=== PATIENT | male | born 1970 | race Two or more races ===

== ENCOUNTER 2025-02-20 18:49 | Inpatient (IN) | payer BC, OTHER ==
[~2025-02-20] VITALS: Ht 170.2 cm; Wt 102.0 kg
--- NOTE | 2025-02-20 19:14 | ED.PDOC ---
HPI Comments This patient is a pleasant but morbidly obese 54-year-old male who was sent to our facility from [facility] urgent care due to a possible NSTEMI event. Patient is going to the urgent care due to chest pain concerns. At arrival, patient was given nitro and EKG and laboratories were drawn. EKG was questionable for an NSTEMI and patient had significant elevated troponins. At time of arrival here, patient was relatively stable with only minimal chest pain complaints. EKG at arrival was unremarkable for any acute NM. vital signs were stable. Chief Complaint: Chest Pain Time Seen by MD: 18:50 Reviewed Notes: Nurses Notes, Intermediate Accountant Notes Information Source: Patient, Emergency Med Personnel Mode of Arrival: EMS Severity: Moderate Timing: Hours Duration: Minutes Prehospital treatment: Hand Roller Location: Chest (R), Chest (L), Substernal Radiation: Shoulder (R), Shoulder (L) Quality: Sharp, Squeezing, Pressure Onset: At Rest Cardiac Risk Factors: None History of: Similar pain in past Past Medical History PAST MEDICAL HISTORY: HTN Surgical History: Denies all surgeries Family History Family History: Reviewed,noncontributory to illness, No family hx of Cancer, No family hx of DM, No family hx of Heart hue, No family hx of HTN, No family hx ofKidney hue, No family hx of Liver uhe, No family hx of Lung hue, No family hx of Stroke Social History Smoker: Non-Smoker Alcohol: Denies ETOH Use Drugs: Denies Drug Use Lives In: Home Constitutional: denies: chills, diaphoresis, fatigue, fever, malaise, sweats, weakness, others EENTM: denies: blurred vision, double vision, ear bleeding, ear discharge, ear drainage, ear pain, ear ringing, eye pain, eye redness, hearing loss, mouth pain, mouth swelling, nasal discharge, nose bleeding, nose congestion, nose pain, photophobia, tearing, throat pain, throat swelling, voice changes, others Respiratory: denies: cough, hemoptysis, orthopnea, SOB at rest, shortness of breath, SOB with excertion, stridor, wheezing, others Cardiovascular: reports: chest pain; denies: dizzy spells, diaphoresis, Dyspnea on exertion, edema, irregular heart beat, left arm pain, lightheadedness, palpitations, PND, syncope, others Gastrointestinal: denies: abdomen distended, abdominal pain, blood streaked bowels, constipated, diarrhea, dysphagia, difficulty swallowing, hematemesis, melena, nausea, poor appetite, poor fluid intake, rectal bleeding, rectal pain, vomiting, others Genitourinary: denies: burning, dysuria, flank pain, frequency, hematuria, incontinence, penile discharge, penile sore, pain, testicle pain, testicle swelling, urgency, others Neurological: denies: dizziness, fainting, headache, left sided numbness, left sided weakness, numbness, paresthesia, pre-existing deficit, right sided numbness, right sided weakness, seizure, speech problems, tingling, tremors, weakness, others Musculoskeletal: denies: back pain, gout, joint pain, joint swelling, muscle pain, muscle stiffness, neck pain, others Integumetry: denies: bruises, change in color, change in hair/nails, dryness, laceration, lesions, lumps, rash, wounds, others Allergic/Immunocompromised: denies: Difficulty Healing, Frequent Infections, Hives, Itching, others Hematologic/Lymphatic: denies: anemia, blood clots, easy bleeding, easy bruising, swollen glands, others Endocrine: denies: excessive hunger, excessive sweating, excessive thirst, excessive urination, flushing, intolerance to cold, intolerance to heat, unexplained weight gain, unexplained weight loss, others Psychiatric: denies: anxiety, bipolar disorder, depression, hopeless, panic disorder, schizophrenia, sleepless, suicidal, others Physical Exam General Appearance: Mild Distress (Patient has a mild chest pain at time of evaluation. Patient was reasonably comfortable and conversational.), Normal HEENT: Normal ENT Inspection, Pharynx Normal, TMs Normal Neck: Full Range of Motion, Non-Tender, Normal, Normal Inspection Respiratory: Other (Unremarkable auscultation bilateral lung archer.) Cardiovascular: No Edema, No JVD, No Murmur, No Gallop, Normal Peripheral Pulses, Regular Rate/Rhythm, Other (Unremarkable cardiac evaluation.) Breast Exam: Deferred Gastrointestinal: No Organomegaly, Non Tender, No Pulsatile Mass, Normal Bowel Sounds, Soft Genitalia: Deferred Pelvic: Deferred Rectal: Deferred Extremities: No calf tenderness, Normal capillary refill, Normal inspection, Normal range of motion, Non-tender, No pedal edema Neurologic: Alert, No Motor Deficits, Normal Affect, Normal Mood, No Sensory Deficits Cerebellar Function: NOT DONE Reflexes: NOT DONE Skin: Dry, Normal Color, Warm Lymphatic: No Adenopathy Was a procedure done? Was a procedure done?: No CP Differential Dx Differential Diagnosis: A-fib, A-Flutter, Anxiety / Panic Attack, Atrial Dysrhythmia, AV Block 1st Degree, AV Block 2nd Degree, NM Differential Diagnosis: CHF Differential Diagnosis: Angina, Chest Wall Pain X-Ray, Labs, Meds, VS Vital Signs Date Time Temp Pulse Resp B/P (MAP) Pulse Ox O2 Delivery O2 Flow Rate FiO2 02/20/25 19:01 99.2 103 18 174/120 96 99.2 02/20/25 18:53 97 X-Ray, Labs, Meds, VS Comment All studies were pending at time of this note. EKG revealed a sinus rhythm with a rate of 97. Abnormal R-wave progression and early transition was noted. WV interval 165 and QT interval of 357. I spoke with our hospitalist Dr. Meadows and advised him of the patient's complaints and concerns from his earlier urgent care visit. We both reviewed the patient's EKG. Dr. Meadows agreed to accept the patient is a admission for an acute coronary syndrome. Dr. Meadows requested starting heparin in the ED. Time of 1ST Reevaluation: 19:13 Reevaluation 1ST: Improved Consultation: PCP, Cardiology Patient Education/Counseling: Diagnosis, Treatment Family Education/Counseling: Diagnosis, Treatment SEPSIS Sepsis Screen Date sepsis recognized/suspect: Feb 20, 2025 Time Sepsis recognized/suspect: 1851 Recent Procedure: No On Antibiotic Therapy: No Respiratory Rate >20: No Heart Rate >90: Yes Temp<36 C (96.8 F) or >38.3 C: No SBP <90 or MAP <65 mmHG: No New Acute Mental Status Change: No Is the patient on CPAP, BIPAP,: No Physician Orders Heplock Iv (02/20/25 ) Complete Blood Count (02/20/25 18:57) Comprehensive Metabolic Panel (02/20/25 18:57) Lipase (02/20/25 18:57) Troponin-I Hs (02/20/25 18:57) Troponin-I Hs (02/20/25 19:57) Troponin-I Hs (02/20/25 21:57) Electrocardigram (02/20/25 18:57) Continuous Ekg Monitoring 08,12,16,20,00,04 (02/20/25 18:57) Chest Portable (02/20/25 18:57) Heparin Sodium (Porcine) (02/20/25 19:15) Vital Signs Date Time Temp Pulse Resp B/P (MAP) Pulse Ox O2 Delivery O2 Flow Rate FiO2 02/20/25 19:01 99.2 103 18 174/120 96 99.2 02/20/25 18:53 97 Departure 1 Departure Time of Disposition: 19:14 Impression: Primary Impression: Acute coronary syndrome with high troponin Disposition: ADMITTED INPATIENT Condition: Fair Discharged With: Self Critical Care Note Critical Care Time?: No Stability Stability form required: No Heart Score Heart Score: Heart Score Response (Comments) Value History Slightly Suspicious 0 EKG Repolarization Disturb 1 Age 45-64 1 Risk Factors 1 or 2 risk factors 1 Troponin N/A 0 Total 3 RALF LESLIE PAC Feb 20, 2025 19:14
[2025-02-20] MEDS ORDERED: NITROGLYCERIN 0.4 MG SL TAB SL PRN (19:30)
[2025-02-20] MEDS ORDERED: MORPHINE SULFATE INJ 2 MG/ml SYRG IV PRN (19:30)
[2025-02-20] MEDS ORDERED: ACETAMINOPHEN 325 MG TAB PO PRN (19:30)
[2025-02-20] MEDS ORDERED: DOCUSATE SOD 100 MG CAP PO PRN (19:30)
[2025-02-20] MEDS ORDERED: ONDANSETRON HCL 4 MG/2 ML VIAL IV PRN (19:30)
[2025-02-20 19:31] LABS: Hematocrit 43.8 % (41.0-53.0); Hemoglobin 15.6 g/dL (13.5-17.5); Mean Corpuscular Hemoglobin 30.4 pg (28.0-32.0); Mean Corpuscular Volume 85.3 fL (80.0-100.0); Nucleated Red Blood Cells % 0.2 %
--- NOTE | 2025-02-20 19:35 | DVHHP2 ---
Admitting Diagnosis: Chest pain History of Present Illness This patient is a pleasant but morbidly obese 54-year-old male who was sent to our facility from [facility] urgent care due to a possible NSTEMI event. Patient is going to the urgent care due to chest pain concerns. At arrival, patient was given nitro and EKG and laboratories were drawn. EKG was questionable for an NSTEMI and patient had significant elevated troponins. At time of arrival here, patient was relatively stable with only minimal chest pain complaints. EKG at arrival was unremarkable for any acute UT. vital signs were stable. PAST MEDICAL HISTORY: HTN Surgical History: Denies all surgeries Family History Family History: Reviewed,noncontributory to illness, No family hx of Cancer, No family hx of DM, No family hx of Heart hue, No family hx of HTN, No family hx ofKidney hue, No family hx of Liver hue, No family hx of Lung hue, No family hx of Stroke Social History Smoker: Non-Smoker Alcohol: Denies ETOH Use Drugs: Denies Drug Use Lives In: Home Current Medications Current Medications Medications (Trade) Dose Ordered Sig/Carlos Route PRN Reason Start Time Stop Time Status Last Admin Sodium Chloride (Saline Lock Ns) 10 ml Q8HR IV 02/20/25 22:00 UNV Docusate Sodium (Colace Capsule) 100 mg BIDPRN PRN PO FOR CONSTIPATION 02/20/25 19:30 UNV Acetaminophen (Tylenol Tablet) 650 mg Q6HP PRN PO PAIN SCALE 1-3 OR TEMP>100.4 02/20/25 19:30 UNV Acetaminophen/ Hydrocodone Bitart ([place] 5/325MG Tab) 1 tab Q4HP PRN PO MODERATE PAIN (4-6 PAIN SCALE) 02/20/25 19:30 UNV Ondansetron HCl (Zofran) 4 mg Q4HP PRN IV NAUSEA / VOMITING 02/20/25 19:30 UNV Nitroglycerin (Ntrostat Sublingual) 0.4 mg Q5MINP PRN SL FOR CHEST PAIN 02/20/25 19:30 UNV Morphine Sulfate 2 mg Q30M PRN IV FOR CHEST PAIN 02/20/25 19:30 UNV Heparin Sodium/ Dextrose 250 ml @ 11.724 mls/ hr [id number] IV 02/20/25 19:30 UNV Vital Signs Vital Signs Date Time Temp Pulse Resp B/P (MAP) Pulse Ox O2 Delivery O2 Flow Rate FiO2 02/20/25 19:01 99.2 103 18 174/120 96 99.2 Physical Exam 54 years old male, well nourished well developed. Mild Distress HEENT-atraumatic atraumatic, normocephalic Heart-regular rate and rhythm lungs clear to auscultate bilaterally Abdomen soft nontender nondistended Musculoskeletal-no edema cyanosis Neuro-AO x3, no focal deficits SEPSIS Sepsis Screen Date sepsis recognized/suspect: Feb 20, 2025 Time Sepsis recognized/suspect: 1851 Recent Procedure: No On Antibiotic Therapy: No Respiratory Rate >20: No Heart Rate >90: Yes Temp<36 C (96.8 F) or >38.3 C: No SBP <90 or MAP <65 mmHG: No New Acute Mental Status Change: No Is the patient on CPAP, BIPAP,: No Physician Orders Heplock Iv (02/20/25 ) Comprehensive Metabolic Panel (02/20/25 18:57) Lipase (02/20/25 18:57) Troponin-I Hs (02/20/25 18:57) Troponin-I Hs (02/20/25 19:57) Troponin-I Hs (02/20/25 21:57) Electrocardigram (02/20/25 18:57) Continuous Ekg Monitoring 08,12,16,20,00,04 (02/20/25 18:57) Chest Portable (02/20/25 18:57) Admit (02/20/25 19:29) Code Status (02/20/25 19:29) Vital Signs .PER UNIT PROTOCOL (02/20/25 19:29) Review Orders With Adm.Md (02/20/25 19:29) Encourage Activity As Tolerate (02/20/25 19:29) Sodium Chloride Lock (Saline Lock Ns) (02/20/25 22:00) Docusate Sodium Capsule (Colace Capsule) (02/20/25 19:30) Acetaminophen Tablet (Tylenol Tablet) (02/20/25 19:30) Notify Md Of Changes From Base (02/20/25 19:29) Advance Directive (02/20/25 19:29) Patient Condition (02/20/25 19:29) Allergies (8/16/25 19:29) Hydrocodone-Acet 5/325mg Tab ([place] 5/32 (02/20/25) Ondansetron Hcl (Zofran) (02/20/25) Nitroglycerin Sublingual (Ntrostat Subli (02/20/25) Morphine Sulfate Injection (02/20/25) Stat Ekg For Chest Pain (02/20/25) Notify Md Of Changes From Base (02/20/25) Farm Equipment Operator For 24 Hours (02/20/25) Emergency Dysrhythmia Protocol (02/20/25) Rhythm Strips Once Every Shift (02/20/25) Oxygen By Nasal Cannula (02/20/25) Platelet Monitoring (02/20/25) Heparin Per Standardized Proce (02/20/25) Discontinue All Im Injections (02/20/25) PTPTT (02/20/25) Complete Blood Count (02/20/25) Heparin Drip/D5w 100units/Ml (02/20/25) Stat Ekg For Chest Pain (02/20/25) Complete Blood Count (02/21/25 05:00) Complete Blood Count (02/22/25 05:00) Complete Blood Count (02/23/25 05:00) Complete Blood Count (02/24/25 05:00) Complete Blood Count (02/25/25 05:00) Comprehensive Metabolic Panel (02/21/25 05:00) Comprehensive Metabolic Panel (02/22/25 05:00) Comprehensive Metabolic Panel (02/23/25 05:00) Comprehensive Metabolic Panel (02/24/25 05:00) Comprehensive Metabolic Panel (02/25/25 05:00) Vital Signs Date Time Temp Pulse Resp B/P (MAP) Pulse Ox O2 Delivery O2 Flow Rate FiO2 02/20/25 19:01 99.2 103 18 174/120 96 99.2 02/20/25 18:53 97 Laboratory Tests Test 02/20/25:08 White Blood Count 13.6 10^3/uL (4.4-10.8) H Results Labs Test 8/16/25 19:08 Range/Units White Blood Count 13.6 H 4.4-10.8 10^3/uL Red Blood Count 5.13 4.5-5.90 10^6/uL Hemoglobin 15.6 13.5-17.5 g/dL Hematocrit 43.8 41.0-53.0 % Mean Corpuscular Volume 85.3 80.0-100.0 fL Mean Corpuscular Hemoglobin 30.4 28.0-32.0 pg Mean Corpuscular Hemoglobin Concent 35.6 32.0-36.0 g/dL Red Cell Distribution Width 13.7 11.8-14.3 % Platelet Count 383 140-450 10^3/uL Mean Platelet Volume 6.8 L 6.9-10.8 fL Neutrophils (%) (Auto) 70.0 37.0-80.0 % Lymphocytes (%) (Auto) 21.2 10.0-50.0 % Monocytes (%) (Auto) 7.8 0.0-12.0 % Eosinophils (%) (Auto) 0.6 0.0-7.0 % Basophils (%) (Auto) 0.4 0.0-2.0 % Neutrophils # (Auto) 9.5 H 1.6-8.6 10 ^3/uL Lymphocytes # (Auto) 2.9 0.4-5.4 10 ^3/uL Monocytes # (Auto) 1.1 0-1.3 10 ^3/uL Eosinophils # (Auto) 0.1 0-0.8 10 ^3/uL Basophils # (Auto) 0.1 0-0.2 10 ^3/uL Nucleated Red Blood Cells 0.2 % Primary Diagnosis NSTEMI Plan Patient was in [facility] and found to have elevated troponin, and EKG changes. Patient has no transferred to the emergency and heparin drip for ACS protocol Start metoprolol 25 mg b.i.d. Aspirin 81 mg daily Plavix 75 mg daily Check echo of the heart Oxygen supplement for goal saturation greater than 92% Cardiology consult for NSTEMI Trend troponin Full code Hyponatremia for DVT prophylaxis NPO except meds Plan discussed with: Patient Problems List: (1) Acute coronary syndrome with high troponin Status: Acute Date of Service: Feb 20, 2025 Billing Provider: CARLOS WHITE MD Common Visit Codes: [id number] INP/OBS CARE (HIGH) CARLOS WHITE MD Feb 20, 2025 19:35
[2025-02-20 19:47] LABS: Albumin 4.7 g/dL (3.2-4.8); Alkaline Phosphatase 99 U/L (46-116); Anion Gap 12 (5-15); BUN/Creatinine Ratio 14.3 (10.0-20.0); Blood Urea Nitrogen 13 mg/dL (9-23); Calcium 9.5 mg/dL (8.7-10.4); Carbon Dioxide 22 mmol/L (20-31); Chloride 105 mmol/L (98-107); Glucose 99 mg/dL (74-106); Lipase 46 U/L (12-53); Potassium 3.6 mmol/L (3.5-5.1); Sodium 139 mmol/L (136-145); Total Protein 7.5 g/dL (5.7-8.2)
[2025-02-20 19:48] LABS: Bilirubin, Total 1.0 mg/dL (0.2-1.0)
[2025-02-20] MEDS: HEPARIN SODIUM (PORCINE) 5000 UNITS/ML 1ML VIAL IV ONE (19:48)
[2025-02-20 19:49] LABS: Alanine Aminotransferase 75 U/L (7-40)
[2025-02-20 20:01] LABS: INR 1.01 (0.9-1.15); Partial Thromboplastin Time 28.9 SEC (24.5-34.5); Prothrombin Time 10.7 sec (9.3-11.8)
--- NOTE | 2025-02-20 20:12 | DVH ---
CHEST RADIOGRAPH REASON FOR EXAM: Chest pain COMPARISON: None TECHNIQUE: One view of the chest is provided FINDINGS: The cardiomediastinal silhouette is within normal limits for technique. There is no focal a irspace disease. There is no significant pleural effusion. No acute bony abnormality is identified. IMPRESSION: No radiographic evidence of acute cardiopulmonary process.
[2025-02-20] MEDS: hydrALAZINE HCL 20 MG/ML VL IV PRN (20:35)
[2025-02-20] MEDS ORDERED: HEPARIN SODIUM (PORCINE) 5000 UNITS/ML 1ML VIAL IV ONE (20:45)
[2025-02-20] MEDS: HEPARIN DRIP/D5W 100UNITS/ML 250 ML IV SCH (20:46)
[2025-02-20 21:29] VITALS: PULSE 82; RESP 16
[2025-02-20] MEDS: ATORVASTATIN 20 MG TAB PO SCH (22:00)
[2025-02-20] MEDS: SODIUM CHLOR 0.9% PF (SALINE LOCK) 10ML VIAL/SYR IV SCH (22:00)
[2025-02-20] MEDS: METOPROLOL TARTRATE 25 MG TAB PO SCH (22:00)
[2025-02-20] MEDS ORDERED: AMLO1TAB22 PO (22:11)
[2025-02-20] MEDS ORDERED: OMEP40CA33 PO (22:11)
[2025-02-20] MEDS: HYDROcodone-ACET 5/325MG TAB PO PRN (22:27)
--- NOTE | 2025-02-20 23:43 | DVHINCON2 ---
Date of service: Feb 20, 2025 Referring Physician Jerome Reason for Consultation NSTEMI History of Present Illness This is a 54-year-old male with a PMH of HTN who presented to the ED from [facility] urgent care due to a possible NSTEMI event. Patient went to urgent care due to chest pain concerns. At arrival, patient was given nitro and EKG and laboratories were drawn. EKG was questionable for an NSTEMI and patient had significant elevated troponins. At time of arrival here, patient was relatively stable with only minimal chest pain complaints. EKG at arrival was unremarkable for any acute [place]. Vital signs were stable. WBC 13.6, AST 67, ALT 75. Troponin 1290 > 1657 > 2044. Chest x-ray showed NAD. Patient was admitted to the hospital. I am asked to consult on this patient. Allergies: Coded Allergies: NO KNOWN ALLERGIES (Unverified , 02/20/25) Home Meds Reported Medications Omeprazole-Sodium Bicarbonate (Zegerid) 1 Cap Cap, 1 CAP PO HS, CAP 02/20/25 Amlodipine Besylate (Amlodipine Besylate) 5 Mg Tab, 5 MG PO DAILY for 30 Days, MG 02/20/25 Current Medications Current Medications Medications (Trade) Dose Ordered Sig/Carlos Route PRN Reason Start Time Stop Time Status Last Admin Sodium Chloride (Saline Lock Ns) 10 ml Q8HR IV 02/20/25 22:00 Docusate Sodium (Colace Capsule) 100 mg BIDPRN PRN PO FOR CONSTIPATION 02/20/25 19:30 Acetaminophen (Tylenol Tablet) 650 mg Q6HP PRN PO PAIN SCALE 1-3 OR TEMP>100.4 02/20/25 19:30 Acetaminophen/ Hydrocodone Bitart ([place] 5/325MG Tab) 1 tab Q4HP PRN PO MODERATE PAIN (4-6 PAIN SCALE) 02/20/25 19:30 Ondansetron HCl (Zofran) 4 mg Q4HP PRN IV NAUSEA / VOMITING 02/20/25 19:30 Nitroglycerin (Ntrostat Sublingual) 0.4 mg Q5MINP PRN SL FOR CHEST PAIN 02/20/25 19:30 Morphine Sulfate 2 mg Q30M PRN IV FOR CHEST PAIN 02/20/25 19:30 Heparin Sodium/ Dextrose 250 ml @ 10 mls/hr Q24H IV 02/20/25 20:30 02/20/25 20:46 Hydralazine HCl (Apresoline Injection) 10 mg Q6HP PRN IV SBP>160 02/20/25 20:15 02/20/25 20:35 Metoprolol Tartrate (Lopressor Tablet) 25 mg BID PO 02/20/25 22:00 Atorvastatin Calcium (Lipitor) 80 mg HS PO 02/20/25 22:00 Review of Systems Constitutional: denies: chills, diaphoresis, fatigue, fever, malaise, sweats, weakness, others EENTM: denies: blurred vision, double vision, ear bleeding, ear discharge, ear drainage, ear pain, ear ringing, eye pain, eye redness, hearing loss, mouth pain, mouth swelling, nasal discharge, nose bleeding, nose congestion, nose pain, photophobia, tearing, throat pain, throat swelling, voice changes, others Respiratory: denies: cough, hemoptysis, orthopnea, SOB at rest, shortness of breath, SOB with excertion, stridor, wheezing, others Cardiovascular: reports: chest pain; denies: dizzy spells, diaphoresis, Dyspnea on exertion, edema, irregular heart beat, left arm pain, lightheadedness, palpitations, PND, syncope, others Gastrointestinal: denies: abdomen distended, abdominal pain, blood streaked bowels, constipated, diarrhea, dysphagia, difficulty swallowing, hematemesis, melena, nausea, poor appetite, poor fluid intake, rectal bleeding, rectal pain, vomiting, others Genitourinary: denies: burning, dysuria, flank pain, frequency, hematuria, in continence, penile discharge, penile sore, pain, testicle pain, testicle swelling, urgency, others Neurological: denies: dizziness, fainting, headache, left sided numbness, left sided weakness, numbness, paresthesia, pre-existing deficit, right sided numbness, right sided weakness, seizure, speech problems, tingling, tremors, weakness, others Musculoskeletal: denies: back pain, gout, joint pain, joint swelling, muscle pain, muscle stiffness, neck pain, others Integumetry: denies: bruises, change in color, change in hair/nails, dryness, laceration, lesions, lumps, rash, wounds, others Allergic/Immunocompromised: denies: Difficulty Healing, Frequent Infections, Hives, Itching, others Hematologic/Lymphatic: denies: anemia, blood clots, easy bleeding, easy bruising, swollen glands, others Endocrine: denies: excessive hunger, excessive sweating, excessive thirst, excessive urination, flushing, intolerance to cold, intolerance to heat, unexplained weight gain, unexplained weight loss, others Psychiatric: denies: anxiety, bipolar disorder, depression, hopeless, panic disorder, schizophrenia, sleepless, suicidal, others Vital Signs Vital Signs Date Time Temp Pulse Resp B/P (MAP) Pulse Ox O2 Delivery O2 Flow Rate FiO2 02/20/25 21:13 70 16 101/62 (75) 97 02/20/25 20:00 98.0 98.0 02/20/25 19:30 Room Air* 0 21 Physical Exam GENERAL: Alert and oriented x 3. No acute distress. EYES: PERRL, EOMI. Anicteric. HENT: Moist mucous membranes. LUNGS: Clear to auscultation bilaterally. CARDIOVASCULAR: Regular rate and rhythm. ABDOMEN: Soft, nontender and nondistended. EXTREMITIES: No edema. NEUROLOGIC: No focal neurological deficits. SKIN: Warm, dry. Labs/Diagnostic Data Labs Test 02/20/25 20:00 02/20/25 19:08 Range/Units White Blood Count 13.6 H 4.4-10.8 10^3/uL Red Blood Count 5.13 4.5-5.90 10^6/uL Hemoglobin 15.6 13.5-17.5 g/dL Hematocrit 43.8 41.0-53.0 % Mean Corpuscular Volume 85.3 80.0-100.0 fL Mean Corpuscular Hemoglobin 30.4 28.0-32.0 pg Mean Corpuscular Hemoglobin Concent 35.6 32.0-36.0 g/dL Red Cell Distribution Width 13.7 11.8-14.3 % Platelet Count 383 140-450 10^3/uL Mean Platelet Volume 6.8 L 6.9-10.8 fL Neutrophils (%) (Auto) 70.0 37.0-80.0 % Lymphocytes (%) (Auto) 21.2 10.0-50.0 % Monocytes (%) (Auto) 7.8 0.0-12.0 % Eosinophils (%) (Auto) 0.6 0.0-7.0 % Basophils (%) (Auto) 0.4 0.0-2.0 % Neutrophils # (Auto) 9.5 H 1.6-8.6 10 ^3/uL Lymphocytes # (Auto) 2.9 0.4-5.4 10 ^3/uL Monocytes # (Auto) 1.1 0-1.3 10 ^3/uL Eosinophils # (Auto) 0.1 0-0.8 10 ^3/uL Basophils # (Auto) 0.1 0-0.2 10 ^3/uL Nucleated Red Blood Cells 0.2 % Prothrombin Time 10.7 9.3-11.8 sec Prothrombin Time INR 1.01 0.9-1.15 Activated Partial Thromboplast Time 28.9 24.5-34.5 SEC Sodium Level 139 136-145 mmol/L Potassium Level 3.6 3.5-5.1 mmol/L Chloride Level 105 98-107 mmol/L Carbon Dioxide Level 22 20-31 mmol/L Anion Gap 12 5-15 Blood Urea Nitrogen 13 9-23 mg/dL Creatinine 0.91 0.700-1.30 mg/dL Glomerular Filtration Rate Calc 99 >90 mL/min BUN/Creatinine Ratio 14.3 10.0-20.0 Serum Glucose 99 74-106 mg/dL Calcium Level 9.5 8.7-10.4 mg/dL Total Bilirubin 1.0 0.2-1.0 mg/dL Aspartate Amino Transferase (AST) 67 H 13-40 U/L Alanine Aminotransferase (ALT) 75 H 7-40 U/L Alkaline Phosphatase 99 46-116 U/L Total Protein 7.5 5.7-8.2 g/dL Albumin 4.7 3.2-4.8 g/dL Lipase 46 12-53 U/L Assessment NSTEMI. HTN. Plan/Recommendation I agree with your ongoing assessment and care of plan. Telemetry reviewed. Morphine and [place] for pain management. Lipitor, Metoprolol. Heparin drip per pharmacy. IV Hydralazine for SBP > 160. Nitro SL. Additional plan as per the hospital course. A total of 45 minutes was spent reviewing the patient record, examining the patient, making a diagnostic and therapeutic plan, discussing this plan with medical personnel, following up on diagnostic studies and following the patient for clinical stability excluding any and all procedures. At least 50% of this time was spent in direct, [id number] contact. Plan discussed with: Patient CHAUNCEY BOBO MD Feb 20, 2025 21:39
[2025-02-21] VITALS (12 sets, daily range): BP systolic 127–155; BP diastolic 79–108; PULSE 68–106; RESP 18–20; TEMP 97.4–98.4; O2SAT 94–98
[2025-02-21 03:38] LABS: INR 1.03 (0.9-1.15); Partial Thromboplastin Time 30.8 SEC (24.5-34.5); Prothrombin Time 10.9 sec (9.3-11.8)
[2025-02-21] MEDS: HEPARIN SODIUM (PORCINE) 5000 UNITS/ML 1ML VIAL IV ONE (05:03)
[2025-02-21] MEDS: HEPARIN DRIP/D5W 100UNITS/ML 250 ML IV SCH ×2 (05:08→13:30)
--- NOTE | 2025-02-21 05:15 | ECG ---
[facility] Test Date: 2025-02-20 Test Time: 18:51:00 Pat Name: JULIO POLANCO Department: Room: 0293T A Gender: M Bed Maker: [id number] : [id number] Requested By: RALF LESLIE Order Number: [id number] Reading MD: Mak Jonas Measurements Intervals Walsh Rate: 97 P: 60 IL: 165 QRS: 56 QRSD: 86 T: 0 QT: 357 QTc: 454 Interpretive Statements Sinus rhythm Abnormal R-wave progression, early transition Electronically Signed On 02-22-2025 22:56:47 PDT by Mak Jonas Please click the below link to view image of tracing.
[2025-02-21 08:27] LABS: Alkaline Phosphatase 98 U/L (46-116); Anion Gap 13 (5-15); BUN/Creatinine Ratio 10.4 (10.0-20.0); Calcium 9.5 mg/dL (8.7-10.4); Carbon Dioxide 20 mmol/L (20-31); Chloride 104 mmol/L (98-107); Potassium 4.1 mmol/L (3.5-5.1); Sodium 137 mmol/L (136-145); Total Protein 7.2 g/dL (5.7-8.2)
[2025-02-21 08:28] LABS: Albumin 4.6 g/dL (3.2-4.8)
[2025-02-21 08:32] LABS: Alanine Aminotransferase 74 U/L (7-40); Bilirubin, Total 1.3 mg/dL (0.2-1.0); Blood Urea Nitrogen 8 mg/dL (9-23); Cholesterol 216 mg/dL (< 200); Glucose 117 mg/dL (74-106); HDL Cholesterol 32 mg/dL (40-59); Triglycerides 170 mg/dL (< 150)
[2025-02-21 08:48] LABS: Hematocrit 43.9 % (41.0-53.0); Hemoglobin 15.4 g/dL (13.5-17.5); Mean Corpuscular Hemoglobin 30.6 pg (28.0-32.0); Mean Corpuscular Volume 87.0 fL (80.0-100.0); Nucleated Red Blood Cells % 0.1 %
[2025-02-21 12:04] LABS: INR 1.03 (0.9-1.15); Partial Thromboplastin Time 37.1 SEC (24.5-34.5); Prothrombin Time 10.9 sec (9.3-11.8)
[2025-02-21] MEDS: HEPARIN IN NS 1000Units/500mL 1,500 ML ONE (13:12)
[2025-02-21] MEDS: IODIXANOL 320MG/ML 100ML BTL IV ONE ×2 (13:12→14:51)
[2025-02-21] MEDS: MIDAZOLAM HCL 2MG/2ML 2ml VIAL (1mg/ml) ONE (13:23)
[2025-02-21] MEDS: ANGIOMAX 250 MG VIAL IV ONE ×2 (13:23→14:41)
[2025-02-21] MEDS: fentaNYL CITRATE 100 MCG/2 ML VL ONE (13:23)
--- NOTE | 2025-02-21 13:23 | CONS ---
Pharmacy Clinical Information: Heparin drip update: APTT result of 37.1 received from 1119 draw. Please adjust heparin to 1500 units per hour (15mL/hr) starting at 1300. Nurse Emmanuel adjusted rate at 1305. APTT/PT ordered for 1900 per PRx protocol. LEE DUVAL PHARMACIST Feb 21, 2025 13:23
[2025-02-21] MEDS: LIDOCAINE 2%HCL (LOCAL ANESTH.) INJ 20ML MDV ONE (13:24)
[2025-02-21] MEDS: SODIUM CHL 0.9% 50 ML ONE ×2 (13:24→14:41)
[2025-02-21] MEDS: VERAPAMIL 2.5MG/ML INJ 2ML VIAL IV ONE (13:31)
[2025-02-21] MEDS: NITROGLYCERIN 50MG/250ML 250 ML IV ONE (13:32)
[2025-02-21] MEDS: EPTIFIBATIDE INJ (2MG/ML) 10ML VIAL IV ONE (14:14)
[2025-02-21] MEDS: TICAGRELOR 90 MG TAB ONE (15:02)
[2025-02-21] MEDS ORDERED: MET25T PO (15:27)
[2025-02-21] MEDS ORDERED: ASPI1TAB20 PO (15:27)
[2025-02-21] MEDS ORDERED: TICA90TA PO (15:27)
[2025-02-21] MEDS ORDERED: ATOR20TA50 PO (15:27)
--- NOTE | 2025-02-21 15:37 | DVHDS2 ---
New Physician D'charge PN Admitting Diagnosis Admitting Diagnosis NSTEMI Discharge Diagnosis NSTEMI s/p PCI x2 Operations or Procedures none Reason(s) For Hospitalization Surgery Hospital Course 54 M who comes to ER with chest pain. His troponin peaked at 2k. He was started on heparin gtt and cardiology was consulted. Patient was kept NPO and taken to the cytogenetics laboratory manager. He underwent angiogram with PCI x2, please refer to the cath report for further details. He has been cleared by cardiology for discharge on asa/lipitor/brillinta/metoprolol. Scripts were sent to pharmacy on file. Patient has been cleared by cardiology for discharge. He will follow up with cardio outpt in the office next week via [employer]. Treatment Plan Discharge Condition of Discharge Good Disposition Home Discharge Instructions Diet: Cardiac 2g Na,low cholest Activity: No Restrictions, As Tolerated Medications: see med sheet Follow Up Care Follow Up/Referral: pcp cardiology Discharge Statement: "Patient was advised to return to the ER or call 911 if any headaches, dizziness, shortness of breath, chest pain, abdominal pain, bleeding, fevers, or worsening of medical condition. Patient was counseled about treatment plan, medications, possible side effects, patientverbalized understanding. All questions were answered to the best of my ability. This discharge took greater then 30 minutes in planning, reviewing documentation, counseling the patient, and discussing with other team members." KP MENESES MD Feb 21, 2025 15:37
[2025-02-21] MEDS: SODIUM CHLORIDE 0.9% 1,000 ML IV SCH (16:30)
--- NOTE | 2025-02-21 17:52 | DVHOP ---
DATE OF SURGERY: 02/21/2025 TECHNIQUES PERFORMED: * Emergency case. * Ultrasound of the right radial artery. * Management of conscious sedation. * Insertion of 6-Maltese arterial line in right radial artery under ultrasound guidance. * Left heart cath. * Left ventriculogram. * [place] selective left and right coronary artery angiography. COMPLICATIONS: None. The procedure was done on 02/21/2025, on Saturday at approximately 2:00 p.m. INDICATIONS: The patient had an acute non-ST elevation myocardial infarction, transferred from [facility] [place]. The patient is also on a heparin drip. DESCRIPTION OF PROCEDURE: Risks and benefits were discussed in a standard manner. The patient was brought to the engineering laboratory technician urgently on Saturday. Procedure risks and benefits were discussed. Counseled and questions answered. Informed consent obtained. The right radial area thoroughly cleaned with soap and Betadine. Lidocaine was given. Ultrasound was done. A 6-Maltese arterial line was placed in a standard manner. The patient got heparin bolus 2000 units, 2.5 mg of verapamil and 200 mcg of nitroglycerin cocktail was also given in the radial artery. Subsequently, with a TIG catheter 5-Maltese 4.0, the left coronary angio done. With the help of catheter, the right coronary angiography done. At the end of the procedure, we also did a left heart cath and the left ventriculogram were done. Procedure completed. IMPRESSION: * Ejection fraction of the left ventricle is 55%. * The left main is normal. * The left ventricular artery has underlying irregularity noted from the proximal to the mid region. The lesion is in the range of 50%. * The circumflex artery is a large artery and the circumflex artery after its proximal one-third region after giving the large obtuse marginal artery is 100% acutely occluded with ANDERSON grade 0 flow. * The robinson second large obtuse marginal branch has a total of three lesions in its proximal 99%, second lesion 99%, third lesion 99%. ANDERSON grade 2 flow. * The right coronary artery is a large dominant artery in its mid region, is also narrowed in the range of 80% plus. Posterior descending artery has some moderate disease. PLAN OF ACTION: At this time, we are going to do the intervention on large circumflex artery, which is acutely occluded followed by coronary intervention of the obtuse marginal artery. Virginia Ricks MD MP/EKT/ELIEZER TID: [id number] RECEIPT: [id number] [email or web address]
--- NOTE | 2025-02-21 20:11 | DVHOP ---
DATE OF SURGERY: 02/21/2025 THIS IS AN EMERGENCY CASE. TECHNIQUE PERFORMED: * Emergency case. * Insertion of a 6-[place] arterial line from the right radial artery. * Management of conscious sedation. * Left coronary angiography. * Mechanical thrombectomy of left circumflex artery with the help of 6-[place] Rogers catheter. * Balloon angioplasty of the left circumflex artery with 2.5 x 30 mm length semi-compliant balloon. * Stenting and angioplasty of left circumflex artery from proximal to the mid region with 3.0 x 18 mm length [place] Martin stent of ShareWithU and deployed. * Intravascular ultrasound of the left main and also of the left circumflex artery. * Angioplasty of the left circumflex stent with 3.0 x 15 mm length noncompliant balloon, made the artery size to 3.30 mm in size. * Balloon angioplasty of the large obtuse marginal artery arising from the [place] circumflex artery with 3.0 x 15 mm length noncompliant balloon. * The stenting and angioplasty of the second left large obtuse marginal artery with 3.0 x 22 mm length Brian Martin drug-eluting stent of ShareWithU. * Intravascular ultrasound of the left main and also of the left circumflex and obtuse marginal artery stent region. * He had a balloon angioplasty of the second obtuse marginal artery stent with 3.0 x 15 mm length noncompliant balloon and inflated to make the artery up to 3.30 mm in size. * The intracoronary administration of Integrilin 10 mL of the bolus. COMPLICATIONS: None. ASSISTANTS: Assisted by our staff over here is Mode Whiting Brian and Maddi. INDICATIONS: As follows: The patient has an acute non-ST elevation myocardial infarction, 10/10 chest pain, diaphoretic, transferred from the [facility]. DESCRIPTION OF PROCEDURE: Risks and benefits discussed. In the standard manner, the patient's right radial area thoroughly cleaned with soap and Betadine. Lidocaine was given. A 6-[place] arterial line has also been placed in a standard manner. The patient got intravenous Angiomax. We have put an XB 3.5 6-[place] guiding catheter. Angiomax was given. A Runthrough wire was passed in the left circumflex artery, and then after, we did Rogers catheter. With the help of the Rogers catheter, the clot had been removed in the proximal and mid region of the left circumflex artery. Subsequently now, we have noted that blood flow is remarkably reduced in the left circumflex artery. We have put a balloon 2.5 x 30 mm in length. Balloon angioplasty was done in proximal, mid, and distal region of the left circumflex artery. Balloon has been discontinued and subsequently now the artery had been opened up. Now, we put a stent 3.0 x 18 mm length [place] Martin stent of ShareWithU and deployed and a total of 17 atmospheres. Size of the stent had been increased up to 3.15 mm in size. Subsequently, balloon had been deflated and then we did intravascular ultrasound and then we noted we still need to expand the stent, so we put a 3.0 x 15 mm length noncompliant balloon and inflated up to 25 atmospheres plus and made a whole artery up to 3.30 mm in size proximal, mid and distally in the stented region. Procedure went well. Angiography was done. Result was satisfactory. Now, we approached the left obtuse marginal artery. We also put a second Runthrough wire in the second obtuse marginal artery and now we have put a balloon 3.0 x 15 mm length noncompliant balloon, inflated the artery proximally and the entire mid region and subsequently we put a stent 3.0 x 22 mm length [place] Martin stent of ShareWithU and deployed and a total of 17 atmospheres. Stent size was increased to almost 3.15 mm in size, inflated for 31 seconds x2. Balloon had been discontinued. Then, we did intravascular ultrasound and we noted the stent still need to be expanded, so we put a 3.0 x 15 mm length noncompliant balloon and inflated up to 29 atmospheres and made the whole artery up to 3.30 mm in size proximal, mid and distally. Procedure went well. We gave the intracoronary Integrilin that also went well and a total of 10 mL bolus had been given slowly. Now, we have after the balloon, wire, catheter all have been discontinued and now we put a TR band and now inpatient and followup. CONCLUSION: * Prior to performing the procedure #1, the patient's left circumflex artery 100% acutely occluded up to the proximal one-third region. ANDERSON grade 0 flow. * Postprocedure, ANDERSON grade 3 flow, residual stenosis is 0%. No spasm. No dissection. No thrombosis. * Lesion #2: The obtuse marginal artery preprocedure is 99% blocked, total of 3 lesions, proximally 1 lesion and mid region have 2 lesions. ANDERSON grade 2 flow. * Postprocedure ANDERSON grade 3 flow. Residual stenosis is 0%. No spasm. No dissection. No thrombosis. * This was a bifurcation lesion. Procedure went well. No complications. PLAN OF ACTION: As follows: * The patient already got Integrilin bolus in the labor operator and tolerated very well. * Advised aspirin 81 mg a day. * Brilinta 90 mg b.i.d. * Metoprolol tartrate 25 mg b.i.d. * Lipitor 80 mg at night. * IV fluids. Discussed ____ with Dr. Ramsay. X-rays are given to the patient. The patient had been fully educated that he needs to see me in the next few days after he gets approval from the insurance company, so we can further do elective angioplasty stent of the right coronary artery. All above has been discussed with Dr. Ramsay, with the patient. The patient is in compliance and advised to take the medicine; Brilinta, aspirin, metoprolol, Lipitor every day has been prescribed and Dr. Ramsay is going to send a prescription to the pharmacy. Now, the patient do not join the work, no heavy exertion, no sexual activity until I clear. Virginia Ricks MD MP/DAKOTA/ELIEZER TID: [id number] RECEIPT: [id number]
[2025-02-21 21:11] LABS: INR 1.07 (0.9-1.15); Partial Thromboplastin Time 36.6 SEC (24.5-34.5); Prothrombin Time 11.3 sec (9.3-11.8)
[2025-02-21] MEDS: ATORVASTATIN 20 MG TAB PO SCH (21:55)
[2025-02-21] MEDS: TICAGRELOR 90 MG TAB PO SCH (21:56)
[2025-02-21] MEDS: METOPROLOL TARTRATE 25 MG TAB PO SCH (21:56)
--- NOTE | 2025-02-21 23:29 | DVHPN2 ---
Progress Note - Dictate Date Seen: Feb 21, 2025 Medical Necessity Reason Pt with a Central, PICC or Fol: No Subjective Patient was seen and evaluated in follow up. Patient is complaining of chest discomfort. Patient is scheduled for cardiac cath this evening. Risks and benefits were discussed with the patient. WBC 12, AST 120, ALT 74. Telemetry reviewed. vital signs Vital Sign Date Time Temp Pulse Resp B/P (MAP) Pulse Ox O2 Delivery O2 Flow Rate FiO2 02/21/25 13:00 98.4 81 19 154/107 (123) 97 98.4 02/21/25 08:05 Room Air* 0 21 Total Intake and Output 02/20/25 02/20/25 02/21/25 15:00 23:00 07:00 Intake Total 300 ml Balance 300 ml medications Current Medications Medications Dose Ordered Sig/Carlos Route Start Time Stop Time Status Last Admin Dose Admin Sodium Chloride 10 ml Q8HR IV 02/20/25 22:00 02/21/25 05:11 10 ML Docusate Sodium 100 mg BIDPRN PRN PO 02/20/25 19:30 Acetaminophen 650 mg Q6HP PRN PO 02/20/25 19:30 Acetaminophen/ Hydrocodone Bitart 1 tab Q4HP PRN PO 02/20/25 19:30 02/20/25 22:27 1 TAB Ondansetron HCl 4 mg Q4HP PRN IV 02/20/25 19:30 Nitroglycerin 0.4 mg Q5MINP PRN SL 02/20/25 19:30 Morphine Sulfate 2 mg Q30M PRN IV 02/20/25 19:30 Hydralazine HCl 10 mg Q6HP PRN IV 02/20/25 20:15 02/20/25 20:35 10 MG Metoprolol Tartrate 25 mg BID PO 02/20/25 22:00 02/21/25 09:34 25 MG Atorvastatin Calcium 80 mg HS PO 02/20/25 22:00 02/20/25 22:00 80 MG Heparin Sodium/ Dextrose 250 ml @ 15 mls/hr [id number] IV 02/21/25 13:30 objective GENERAL: Alert and oriented x 3. No acute distress. EYES: PERRL, EOMI. Anicteric. HENT: Moist mucous membranes. LUNGS: Clear to auscultation bilaterally. CARDIOVASCULAR: Regular rate and rhythm. ABDOMEN: Soft, nontender and nondistended. EXTREMITIES: No edema. NEUROLOGIC: No focal neurological deficits. SKIN: Warm, dry. laboratory and microbiology Laboratory Tests 02/21/25 06:50 02/21/25 02:35 Test 02/21/25 06:50 Range/Units Serum Glucose 117 H 74-106 mg/dL Problem List NSTEMI. HTN. Assessment/Plan Continued all current supportive medical care. Cardiac cath, risks and benefits were discussed with the patient. Morphine and [place] for pain management. Lipitor, Metoprolol. Nitro SL. Heparin drip per pharmacy. Additional plan as per the hospital course. Plan discussed with: Patient CHAUNCEY BOBO MD Feb 21, 2025 14:45
[2025-02-22 01:00] VITALS: BP 129/78; PULSE 81; RESP 17; TEMP 97.6; O2SAT 94
[2025-02-22 05:00] VITALS: BP 142/85; PULSE 78; RESP 19; TEMP 97.5; O2SAT 96
[2025-02-22 08:00] VITALS: PULSE 86; PULSE 98; RESP 18
[2025-02-22 08:09] LABS: Hematocrit 42.0 % (41.0-53.0); Hemoglobin 14.4 g/dL (13.5-17.5); Mean Corpuscular Hemoglobin 30.6 pg (28.0-32.0); Mean Corpuscular Volume 89.1 fL (80.0-100.0); Nucleated Red Blood Cells % 0.1 %
[2025-02-22 08:17] LABS: Albumin 4.5 g/dL (3.2-4.8); Alkaline Phosphatase 92 U/L (46-116); Anion Gap 12 (5-15); BUN/Creatinine Ratio 11.8 (10.0-20.0); Blood Urea Nitrogen 11 mg/dL (9-23); Calcium 9.3 mg/dL (8.7-10.4); Carbon Dioxide 21 mmol/L (20-31); Chloride 105 mmol/L (98-107); Potassium 3.7 mmol/L (3.5-5.1); Sodium 138 mmol/L (136-145); Total Protein 7.0 g/dL (5.7-8.2)
[2025-02-22 08:18] LABS: Alanine Aminotransferase 65 U/L (7-40); Bilirubin, Total 1.7 mg/dL (0.2-1.0); Glucose 109 mg/dL (74-106)
[2025-02-22 09:00] VITALS: BP 114/87; PULSE 88; RESP 18; TEMP 98.8; O2SAT 95
--- NOTE | 2025-02-22 23:30 | DVHPN2 ---
Progress Note - Dictate Date Seen: Feb 22, 2025 Medical Necessity Reason Pt with a Central, PICC or Fol: No Subjective Patient was seen and evaluated in follow up. Patient is s/p emergency left heart cath, [place] selective left and right coronary artery angiography, left coronary angiography, mechanical thrombectomy of left circumflex artery, balloon angioplasty of the left circumflex artery, stenting and angioplasty of left circumflex artery, angioplasty of the left circumflex stent, balloon angioplasty of the large obtuse marginal artery, stenting and angioplasty of the second left large obtuse marginal artery, balloon angioplasty of the second obtuse marginal artery stent and intracoronary administration of Integrilin 10 mL of the bolus. The patient had been fully educated that he needs to see me in the next few days after he gets approval from the insurance company, so we can further do elective angioplasty stent of the right coronary artery. All above has been discussed with Dr. Ramsay, with the patient. The patient is in compliance and advised to take the medicine; Brilinta, aspirin, metoprolol, Lipitor every day has been rescribed and Dr. Ramsay is going to send a prescription to the pharmacy. Now, the patient do not join the work, no heavy exertion, no sexual activity until I clear. Telemetry reviewed. vital signs Vital Sign Date Time Temp Pulse Resp B/P (MAP) Pulse Ox O2 Delivery O2 Flow Rate FiO2 02/22/25 09:00 98.8 88 18 114/87 (96) 95 98.8 02/22/25 08:00 Room Air* 0 21 Total Intake and Output 02/21/25 02/21/25 02/22/25 15:00 23:00 07:00 Intake Total 1100 ml 280 ml Balance 1100 ml 280 ml objective GENERAL: Alert and oriented x 3. No acute distress. EYES: PERRL, EOMI. Anicteric. HENT: Moist mucous membranes. LUNGS: Clear to auscultation bilaterally. CARDIOVASCULAR: Regular rate and rhythm. ABDOMEN: Soft, nontender and nondistended. EXTREMITIES: No edema. NEUROLOGIC: No focal neurological deficits. SKIN: Warm, dry. laboratory and microbiology Laboratory Tests 02/22/25 06:13 Test 02/22/25 06:13 Range/Units Serum Glucose 109 H 74-106 mg/dL Problem List NSTEMI. HTN. Assessment/Plan Continued all current supportive medical care. Morphine and [place] for pain management. Lipitor, Metoprolol. Nitro SL. Heparin drip per pharmacy. Additional plan as per the hospital course. Plan discussed with: Patient CHAUNCEY BOBO MD Feb 22, 2025 23:30
== END 2025-02-22 09:57 | disposition home or self-care (01) | DRG 322 ==
LOC: EDBD 18:49 → ER 18:49 → OVERFLOW 19:29 → TELE-WESTW 21:35
PROVIDERS: ATTEND Physician Assistant
PROC: 027135Z Dilation of Coronary Artery, Two Arteries with Two Drug-eluting Intraluminal Devices, Percutaneous Approach (ICD-10-PCS; principal; 2025-02-21)
PROC: 4A023N7 Measurement of Cardiac Sampling and Pressure, Left Heart, Percutaneous Approach (ICD-10-PCS; 2025-02-21)
PROC: B211YZZ Fluoroscopy of Multiple Coronary Arteries using Other Contrast (ICD-10-PCS; 2025-02-21)
PROC: 4A133B1 Monitoring of Arterial Pressure, Peripheral, Percutaneous Approach (ICD-10-PCS; 2025-02-21)
PROC: B215YZZ Fluoroscopy of Left Heart using Other Contrast (ICD-10-PCS; 2025-02-21)
DX: I21.4 Non-ST elevation (NSTEMI) myocardial infarction (principal); I10 Essential (primary) hypertension; E66.01 Morbid (severe) obesity due to excess calories; Z79.899 Other long term (current) drug therapy; Z68.35 Body mass index [BMI] 35.0-35.9, adult
CPT/HCPCS: 36415; 71045; 80053; 80061; 83690; 84484; 85025; 85610; 85730; 87081; 92928; 92941; 93005; 93458; 96374; 99152; G0378; J2250; J2405; Q9967